=== PATIENT | male | born 1945 | race Caucasian/White ===

== ENCOUNTER 2016-07-19 08:07 | Inpatient (IN) ==
[2016-07-20 05:44] LABS: Basophils % 0.6 %; Eosinophils # 0.3 K/mcL (0.0-0.6); Eosinophils % 5.9 %; Hematocrit 38.9 % (37.5-50.1); Hemoglobin 13.3 g/dL (12.9-16.9); Immature Granulocytes % 0.2 % (0-4); Lymphocytes # 1.1 K/mcL (0.6-4.6); Lymphocytes % 24.2 %; Mean Corpuscular HGB Conc 34.2 g/dL (31.6-35.5); Mean Corpuscular Hemoglobin 32.2 pg (28.0-33.3); Mean Corpuscular Volume 94.2 fL (83.0-100.0); Mean Platelet Volume 9.6 fL (9.4-12.4); Monocytes # 0.5 K/mcL (0.0-1.3); Neutrophils # 2.8 K/mcL (1.6-8.9); Platelet Count 128 K/mcL (140-400); Red Blood Count 4.13 M/mcL (4.19-5.50); Red Cell Distribution Width 12.7 % (11.5-14.5); Segmented Neutrophils % 59.1 %
[2016-07-20 05:46] LABS: Prothrombin Time 11.3 Seconds (9.4-12.1)
[2016-07-20 05:49] LABS: Activated Partial Thrombo Time 28.8 Seconds (26.0-36.0)
[2016-07-20 05:58] LABS: BUN/Creatinine Ratio 12 (6-26); Blood Urea Nitrogen 14 mg/dL (8-26); Calcium 9.3 mg/dL (8.6-10.8); Carbon Dioxide 27 mEq/L (19-29); Chloride 101 mEq/L (98-109); Glucose 90 mg/dL (70-99); Osmolality,Calculated 278 (280-300); Potassium 4.8 mEq/L (3.5-4.5); Sodium 134 mEq/L (136-145); eGFR For African Americans > 60 (> 60); eGFR For Non-African Americans > 60 (> 60)
[2016-07-20] MEDS: Aspirin 81 MG TAB.CHEW PO SCH (07:59)
[2016-07-20] MEDS: Acetaminophen 325 MG TABLET PO PRN ×2 (08:00→20:03)
--- NOTE | 2016-07-20 11:25 | Internal Med History&Physical ---
Date of Encounter: 07/20/16 Time of Encounter: 11:23 Assessment and Plan (1) Cerebrovascular accident Current visit: Yes Status: Acute Patient be worked with PT OT T or and speech. Qualifiers: CVA mechanism: embolism Precerebral and cerebral artery: unspecified cerebral artery Qualified Code(s): I63.40 - Cerebral infarction due to embolism of unspecified cerebral artery Internal Medicine - H&P: HPI Chief complaint: Patient had a left CVA. Admitted From: Hospital to Hospital Transfer Plans for Post Hospital Care: Home History of present illness: Mr. Camargo is a 71 year old male Past Med Surg Social Fam HX - Past Medical History Medical history: aortic aneurysm, arthritis, COPD, CVA, hyperlipidemia, hypertension, syncope, other Psychiatric history: no psych history - Past Surgical History Surgical History: cataract, LE Bypass, other - Social History Smoking Status: Current every day smoker Smokeless Tobacco Status: No Alcohol use: none, recent Drug use: other - Family History Father Living Status: Still Living Hx Family Respiratory Disorders: Yes (COPD) Daughter Family Member Ethnicity: Non- Internal Medicine - H&P: Meds Acetaminophen [Tylenol] 650 mg PO Q6H PRN 04/20/16 [History] Atorvastatin Calcium [Lipitor] 80 mg PO HS 04/20/16 [History] Citalopram [CeleXA] 20 mg PO DAILY 04/20/16 [History] Lisinopril [Zestril] 10 mg PO DAILY 04/20/16 [History] Sennosides/Docusate Sodium [Senna-Docusate Sodium Tablet] 1 tab PO BID PRN 04/20 [History] Aspirin 81 mg PO DAILY 07/19/16 [History] Allergies No Known Allergies Allergy (Verified 04/09/16 23:54) All Systems PM: A 10-system review of systems was performed and is negative for pertinent findings except as documented above in the HPI. - Constitutional Vitals: Temp Pulse Resp BP Pulse Ox 98.3 F 67 15 118/74 98 07/20/16 07:10 07/20/16 07:10 07/20/16 07:10 07/20/16 07:10 07/20/16 07:10 - Head Head exam: Present: atraumatic, normal inspection, normocephalic - Neurological Exam Neurological exam: Present: alert ( An infarct revealed superior aspect of left cerebellar hemisphere without hemorrhage), CN II-XII intact, oriented X3, no focal deficits. Absent: pronater drift, facial droop, speech deficit - Expanded Neurological Exam Speech: Present: slurred Internal Med - H&P Results - Labs CBC & Chem 7: 07/20/16 05:20 07/20/16 05:20 Labs: Short CBC 07/20/16 Range/Units 05:20 WBC 4.7 (4.3-11.1) K/mcL Hgb 13.3 (12.9-16.9) g/dL Hct 38.9 (37.5-50.1) % Plt Count 128 L (140-400) K/mcL Neutrophils # 2.8 (1.6-8.9) K/mcL BMP 07/20/16 05:20 Sodium 134 L Potassium 4.8 H Chloride 101 Carbon Dioxide 27 BUN 14 Creatinine 1.13 Glucose 90 Calcium 9.3 Lab looks pretty good - VTE Documentation of Mechanical Device: Graduated compression elastic hosiery
[2016-07-20] MEDS: Sennosides/Docusate Sodium TABLET PO PRN (20:03)
--- NOTE | 2016-07-21 04:56 | Internal Med Progress Note ---
Date of Encounter: 07/21/16 Time of Encounter: 09:17 - Assessment and plan (1) Cerebrovascular accident Current Visit: Yes Status: Acute Assessment and plan: PT and OT to improve ADL. Pt with mild- moderate oropharyngeal dysphagia, mild dysarthria and mild cognitive communication deficits Speech Therapy Recommendations Begin speech language therapy to address impairments discussed above. Rehab Potential Good Qualifiers: CVA mechanism: embolism Precerebral and cerebral artery: unspecified cerebral artery Qualified Code(s): I63.40 - Cerebral infarction due to embolism of unspecified cerebral artery - Time Spent With Patient less than 15 minutes - Subjective Interval history: No new complaint today. No shortness of breath. No chest pain. No abdominal pain. - Constitutional Vitals: Temp Pulse Resp BP Pulse Ox 97.9 F 62 16 101/64 97 07/20/16 22:19 07/20/16 22:19 07/20/16 16:32 07/20/16 22:19 07/20/16 22:19 General appearance: Present: A&O X 3, pleasant, no acute distress - Respiratory Respiratory exam: Present: CTAB. Absent: accessory muscle use, rales, rhonchi, wheezes - Cardiovascular Cardiovascular exam: Present: RRR, +S1, +S2. Absent: diastolic murmur, gallop, rubs, systolic murmur - GI/Abdominal GI/Abdominal exam: Present: normal bowel sounds, soft, no peritoneal signs. Absent: distended, tenderness - Neurological Exam Neurological exam: Present: alert, normal gait, speech deficit - Skin Skin exam: Present: dry, intact Internal Medicine: Result - Labs CBC & Chem 7: 07/20/16 05:20 07/20/16 05:20 Labs: Short CBC 07/20/16 Range/Units 05:20 WBC 4.7 (4.3-11.1) K/mcL Hgb 13.3 (12.9-16.9) g/dL Hct 38.9 (37.5-50.1) % Plt Count 128 L (140-400) K/mcL Neutrophils # 2.8 (1.6-8.9) K/mcL BMP 07/20/16 05:20 Sodium 134 L Potassium 4.8 H Chloride 101 Carbon Dioxide 27 BUN 14 Creatinine 1.13 Glucose 90 Calcium 9.3 - ABG Interpretation ABG results: PT/INR, D-dimer PT 11.3 Seconds (9.4-12.1) 07/20/16 05:20 - VTE Documentation of Mechanical Device: Graduated compression elastic hosiery Consult Discharge Plan - Plan Referrals: NO,PCP [Primary Care Provider] -
[2016-07-21] MEDS: Aspirin 81 MG TAB.CHEW PO SCH (09:52)
[2016-07-21] MEDS: Sennosides/Docusate Sodium TABLET PO PRN (10:00)
[2016-07-21] MEDS: Acetaminophen 325 MG TABLET PO PRN (17:04)
[2016-07-22] MEDS: Sennosides/Docusate Sodium TABLET PO PRN (09:11)
[2016-07-22] MEDS: Aspirin 81 MG TAB.CHEW PO SCH (09:11)
[2016-07-22] MEDS: Acetaminophen 325 MG TABLET PO PRN (11:40)
--- NOTE | 2016-07-22 12:20 | Internal Med Progress Note ---
Date of Encounter: 07/22/16 Time of Encounter: 12:19 - Assessment and plan (1) Cerebrovascular accident Current Visit: Yes Status: Acute Assessment and plan: Patient is working with therapist including speech and we will follow his progress and reevaluate tomorrow Qualifiers: CVA mechanism: embolism Precerebral and cerebral artery: unspecified cerebral artery Qualified Code(s): I63.40 - Cerebral infarction due to embolism of unspecified cerebral artery - Time Spent With Patient less than 15 minutes - Subjective Interval history: Patient seems to be doing very well. He has begun his therapy he just finished eating and then arrested in his room with no obvious complaint - Constitutional Vitals: Temp Pulse Resp BP Pulse Ox 99.1 F 83 16 129/93 95 07/22/16 06:29 07/22/16 06:29 07/22/16 06:29 07/22/16 06:29 07/22/16 06:29 General appearance: Present: A&O X 3, pleasant, no acute distress - Head Head exam: Present: atraumatic, normal inspection, normocephalic - Neck Neck exam general surgery: Present: supple, trachea midline. Absent: lymphadenopathy - Respiratory Respiratory exam: Present: CTAB. Absent: accessory muscle use, rales, rhonchi, wheezes - Cardiovascular Cardiovascular exam: Present: RRR, +S1, +S2. Absent: diastolic murmur, gallop, rubs, systolic murmur Internal Medicine: Result - Labs CBC & Chem 7: 07/20/16 05:20 07/20/16 05:20 Labs: Abdomen appears to be stable - ABG Interpretation ABG results: PT/INR, D-dimer PT 11.3 Seconds (9.4-12.1) 07/20/16 05:20 - VTE Documentation of Mechanical Device: Graduated compression elastic hosiery Consult Discharge Plan - Plan Referrals: NO,PCP [Primary Care Provider] -
[2016-07-23 05:40] LABS: Basophils % 0.4 %; Eosinophils # 0.3 K/mcL (0.0-0.6); Eosinophils % 5.2 %; Hematocrit 41.7 % (37.5-50.1); Hemoglobin 14.3 g/dL (12.9-16.9); Immature Granulocytes % 0.4 % (0-4); Lymphocytes # 1.3 K/mcL (0.6-4.6); Lymphocytes % 25.3 %; Mean Corpuscular HGB Conc 34.3 g/dL (31.6-35.5); Mean Corpuscular Hemoglobin 32.1 pg (28.0-33.3); Mean Corpuscular Volume 93.7 fL (83.0-100.0); Mean Platelet Volume 10.1 fL (9.4-12.4); Monocytes # 0.5 K/mcL (0.0-1.3); Monocytes % 9.4 %; Neutrophils # 3.1 K/mcL (1.6-8.9); Platelet Count 136 K/mcL (140-400); Red Blood Count 4.45 M/mcL (4.19-5.50); Red Cell Distribution Width 12.4 % (11.5-14.5); Segmented Neutrophils % 59.3 %
[2016-07-23 05:54] LABS: BUN/Creatinine Ratio 15 (6-26); Blood Urea Nitrogen 18 mg/dL (8-26); Calcium 9.3 mg/dL (8.6-10.8); Carbon Dioxide 24 mEq/L (19-29); Chloride 100 mEq/L (98-109); Glucose 89 mg/dL (70-99); Osmolality,Calculated 273 (280-300); Potassium 4.8 mEq/L (3.5-4.5); Sodium 131 mEq/L (136-145); eGFR For African Americans > 60 (> 60); eGFR For Non-African Americans 60 (> 60)
[2016-07-23] MEDS: Acetaminophen 325 MG TABLET PO PRN ×2 (09:36→20:10)
[2016-07-23] MEDS: Aspirin 81 MG TAB.CHEW PO SCH (09:36)
[2016-07-23] MEDS: Sennosides/Docusate Sodium TABLET PO PRN (20:10)
--- NOTE | 2016-07-24 00:21 | Internal Med Progress Note ---
Date of Encounter: 07/24/16 Time of Encounter: 07:56 - Assessment and plan (1) Cerebrovascular accident Current Visit: Yes Status: Inactive Assessment and plan: Dysarthria improving. Left-sided weakness still noted. Still has some balance uncoordination Patient is working with therapist including speech and we will follow his progress and reevaluate tomorrow Qualifiers: CVA mechanism: embolism Precerebral and cerebral artery: unspecified cerebral artery Qualified Code(s): I63.40 - Cerebral infarction due to embolism of unspecified cerebral artery - Time Spent With Patient less than 15 minutes - Subjective Interval history: No new complaint today. No shortness of breath. No chest pain. No abdominal pain. - Constitutional Vitals: Temp Pulse Resp BP Pulse Ox 97.2 F L 82 16 102/62 95 07/23/16 19:14 07/23/16 19:14 07/23/16 19:14 07/23/16 19:14 07/23/16 19:14 General appearance: Present: A&O X 3, pleasant, no acute distress - Respiratory Respiratory exam: Present: CTAB. Absent: accessory muscle use, rales, rhonchi, wheezes - Cardiovascular Cardiovascular exam: Present: RRR, +S1, +S2. Absent: diastolic murmur, gallop, rubs, systolic murmur - GI/Abdominal GI/Abdominal exam: Present: normal bowel sounds, soft, no peritoneal signs. Absent: distended, tenderness - Extremities Exam Extremities exam: Present: warm, radial pulses palpable and symetrical. Absent : calf tenderness, cyanotic, pedal edema - Neurological Exam Neurological exam: Present: alert, oriented X3, speech deficit Internal Medicine: Result - Labs CBC & Chem 7: 07/23/16 05:10 07/23/16 05:10 Labs: Short CBC 07/23/16 Range/Units 05:10 WBC 5.2 (4.3-11.1) K/mcL Hgb 14.3 (12.9-16.9) g/dL Hct 41.7 (37.5-50.1) % Plt Count 136 L (140-400) K/mcL Neutrophils # 3.1 (1.6-8.9) K/mcL BMP 07/23/16 05:10 Sodium 131 L Potassium 4.8 H Chloride 100 Carbon Dioxide 24 BUN 18 Creatinine 1.20 Glucose 89 Calcium 9.3 - ABG Interpretation ABG results: PT/INR, D-dimer PT 11.3 Seconds (9.4-12.1) 07/20/16 05:20 - VTE Documentation of Mechanical Device: Graduated compression elastic hosiery Consult Discharge Plan - Plan Referrals: NO,PCP [Primary Care Provider] -
[2016-07-24] MEDS: Aspirin 81 MG TAB.CHEW PO SCH (08:11)
[2016-07-24] MEDS: Acetaminophen 325 MG TABLET PO PRN ×2 (10:18→20:09)
[2016-07-25] MEDS: Aspirin 81 MG TAB.CHEW PO SCH (08:28)
--- NOTE | 2016-07-25 13:17 | Internal Med Progress Note ---
Date of Encounter: 07/25/16 Time of Encounter: 13:14 - Assessment and plan (1) Dehydration Current Visit: No Status: Acute Assessment and plan: This is resolved. (2) Facial bones, closed fracture Current Visit: No Status: Acute Assessment and plan: No sequela before Qualifiers: Encounter type: subsequent encounter Mandible location: other site Fracture healing: with routine healing Qualified Code(s): S02.69XD - Fracture of mandible of other specified site, subsequent encounter for fracture with routine healing (3) Near syncope Current Visit: No Status: Acute Assessment and plan: Currently not suffering near syncope (4) TIA (transient ischemic attack) Current Visit: No Status: Acute Assessment and plan: The patient had a TIA but ecchymosis resolved. Lips E PT OT and TR notes. Along with speech. I have some concerns about his independence. He definitely needs standby and using wheelchair .he will go With his brother who he will go home with and he will have "meals and assistance. Home he stays there is a problem Qualifiers: Transient cerebral ischemia type: unspecified Qualified Code(s): G45.9 - Transient cerebral ischemic attack, unspecified - Time Spent With Patient less than 15 minutes - Subjective Interval history: Patient seems to be doing very well. He has begun his therapy he just finished eating and then rested in his room with no obvious complaint - Constitutional Vitals: Temp Pulse Resp BP Pulse Ox 98.1 F 96 16 106/52 98 07/25/16 07:00 07/25/16 07:00 07/25/16 07:00 07/25/16 07:00 07/25/16 07:00 General appearance: Present: A&O X 3, pleasant, no acute distress - Head Head exam: Present: atraumatic, normal inspection, normocephalic - Neck Neck exam general surgery: Present: supple, trachea midline. Absent: lymphadenopathy - Respiratory Respiratory exam: Present: CTAB. Absent: accessory muscle use, rales, rhonchi, wheezes - Cardiovascular Cardiovascular exam: Present: RRR, +S1, +S2. Absent: diastolic murmur, gallop, rubs, systolic murmur Internal Medicine: Result - Labs CBC & Chem 7: 07/23/16 05:10 07/23/16 05:10 Labs: Labs basically okay - ABG Interpretation ABG results: PT/INR, D-dimer PT 11.3 Seconds (9.4-12.1) 07/20/16 05:20 - VTE Documentation of Mechanical Device: Graduated compression elastic hosiery Consult Discharge Plan - Plan Referrals: NO,PCP [Primary Care Provider] -
--- NOTE | 2016-07-25 14:50 | Psychological Evaluation ---
Date of Encounter: 07/25/16 Time of Encounter: 11:00 History of Present Illness History of present illness: Mr. Camargo is a 71 year old male admitted to [facility] following a recent CVA (pre- cerebral and cerebral artery). He was seen on this date to assess his current emotional and cognitive functioning. Past Medical History Medical history: Mr. Camargo's medical history is significant for aortic aneurysm, arthritis, syncope, HTN, COPD, hyperlipidemia and a previous CVA. - Psychiatric History Additional Psychiatric History: There is no history of psychiatric hospitalization or mental health counseling. He reported that he has been prescribed an antidepressant medication. There is no family history of psychiatric or mental health issues. Home Medications and Allergies Acetaminophen [Tylenol] 650 mg PO Q6H PRN 04/20/16 [History] Atorvastatin Calcium [Lipitor] 80 mg PO HS 04/20/16 [History] Citalopram [CeleXA] 20 mg PO DAILY 04/20/16 [History] Lisinopril [Zestril] 10 mg PO DAILY 04/20/16 [History] Sennosides/Docusate Sodium [Senna-Docusate Sodium Tablet] 1 tab PO BID PRN 04/20 [History] Aspirin 81 mg PO DAILY 07/19/16 [History] Allergies No Known Allergies Allergy (Verified 04/09/16 23:54) Social History - Social History Social History: Ms. Camargo lives alone but was discharged to the care of his older brother and his brother's after his last CVA. Mr. Camargo apparently felt well enough to return to independent living. He stated that he spent his days watching TV and went to the local [employer] daily to eat lunch and have a "couple of beers". Mr. Camargo is and has two daughters (one lives in [place] and the other lives in the [facility]). HIs social support system consists of his daughter in [place] and his brother. - Tobacco Use Smoking Status: Current every day smoker - Alcohol Use Alcohol Use: occasionally (drinks "a couple of beers" daily at the [employer]) - Drug Use Drug Use: none Cognitive/Emotional Assessment - Cognitive Ability Additional Findings: Mr. Camargo was alert, attentive and fully oriented. Speech was fluent but was difficult to understand at times because he tended to mumble and speak fast. Auditory comprehension appeared adequate. He was able to do rote but not simple mental arithmetic. On a task of delayed verbal recall, he was unable to recall any of the words following a brief delay despite cueing/multiple choice recognition. He had predicted that he would do well on the memory task and was surprised by his performance. He stated that one of his daughters handles his finances and personal affairs. - Emotional Status Additional Findings: Mr. Camargo was pleasant, cooperative and friendly. Speech was fluent. Thought processes were coherent, goal-directed and logical. There were no signs of delusional ideation or perceptual disturbances. He described his mood as "good " and stated that he does not worry and tries to go with the flow. His rehab goal is to improve his walking/ambulation and improve the use of his left hand. Assessment & Plan - Diagnosis (1) Other specified mental disorders due to known physiological condition (2) CVA (cerebrovascular accident due to intracerebral hemorrhage) Qualifiers: Intracerebral hemorrhage etiology: nontraumatic Cerebral hemorrhage location: unspecified cerebral location Laterality: unspecified laterality Qualified Code(s): I61.9 - Nontraumatic intracerebral hemorrhage, unspecified - Treatment Plan Treatment Plan/Recommendations: Mr. Camargo is exhibiting significant impairment in his delayed verbal recall. He appears to be coping fairly well from an emotional perspective and did not voice any complaints or concerns regarding his CVA recovery. He will benefit from supervision in his daily routine to ensure that he takes his medications as prescribed and should be encouraged to abstain from smoking and drinking beer given his chronic medical conditions. Procedures - Session Time Session Start Time: 11:00 Session Stop Time: 11:30
[2016-07-25] MEDS: Acetaminophen 325 MG TABLET PO PRN (20:59)
[2016-07-25] MEDS: Sennosides/Docusate Sodium TABLET PO PRN (20:59)
[2016-07-26] MEDS: Acetaminophen 325 MG TABLET PO PRN ×2 (09:41→20:58)
[2016-07-26] MEDS: Aspirin 81 MG TAB.CHEW PO SCH (09:41)
--- NOTE | 2016-07-26 13:22 | Internal Med Progress Note ---
Date of Encounter: 07/26/16 Time of Encounter: 13:20 - Assessment and plan (1) Dehydration Current Visit: No Status: Acute Assessment and plan: This appears to be resolved (2) Facial bones, closed fracture Current Visit: No Status: Acute Assessment and plan: Not currently causing any acute clinical problem Qualifiers: Encounter type: subsequent encounter Mandible location: other site Fracture healing: with routine healing Qualified Code(s): S02.69XD - Fracture of mandible of other specified site, subsequent encounter for fracture with routine healing (3) Near syncope Current Visit: No Status: Acute Assessment and plan: No evidence of near syncope (4) TIA (transient ischemic attack) Current Visit: No Status: Acute Assessment and plan: No repeated TIAs Qualifiers: Transient cerebral ischemia type: unspecified Qualified Code(s): G45.9 - Transient cerebral ischemic attack, unspecified - Time Spent With Patient less than 15 minutes - Subjective Interval history: Patient is cooperating with the therapist. One of his biggest problems other than balance and independent ambulation is the fact that he still has some slurred speech - Constitutional Vitals: Temp Pulse Resp BP Pulse Ox 98.0 F 63 16 109/77 96 07/26/16 07:00 07/26/16 07:00 07/26/16 07:00 07/26/16 07:00 07/26/16 07:00 General appearance: Present: A&O X 3, pleasant, no acute distress - Head Head exam: Present: atraumatic, normal inspection, normocephalic - Neck Neck exam general surgery: Present: supple, trachea midline. Absent: lymphadenopathy - Respiratory Respiratory exam: Present: CTAB. Absent: accessory muscle use, rales, rhonchi, wheezes - Cardiovascular Cardiovascular exam: Present: RRR, +S1, +S2. Absent: diastolic murmur, gallop, rubs, systolic murmur - GI/Abdominal GI/Abdominal exam: Present: normal bowel sounds, soft, no peritoneal signs. Absent: distended, tenderness Internal Medicine: Result - Labs CBC & Chem 7: 07/23/16 05:10 07/23/16 05:10 Labs: Lab is stable - ABG Interpretation ABG results: PT/INR, D-dimer PT 11.3 Seconds (9.4-12.1) 07/20/16 05:20 - VTE Documentation of Mechanical Device: Graduated compression elastic hosiery Consult Discharge Plan - Plan Referrals: NO,PCP [Primary Care Provider] -
[2016-07-26] MEDS: Sennosides/Docusate Sodium TABLET PO PRN (20:57)
[2016-07-27] MEDS: Acetaminophen 325 MG TABLET PO PRN ×2 (09:03→18:19)
[2016-07-27] MEDS: Aspirin 81 MG TAB.CHEW PO SCH (09:03)
--- NOTE | 2016-07-27 11:59 | Internal Med Progress Note ---
Date of Encounter: 07/27/16 Time of Encounter: 11:57 - Assessment and plan (1) Dehydration Current Visit: No Status: Acute (2) Facial bones, closed fracture Current Visit: No Status: Acute Qualifiers: Encounter type: subsequent encounter Mandible location: other site Fracture healing: with routine healing Qualified Code(s): S02.69XD - Fracture of mandible of other specified site, subsequent encounter for fracture with routine healing (3) Near syncope Current Visit: No Status: Acute (4) TIA (transient ischemic attack) Current Visit: No Status: Acute Qualifiers: Transient cerebral ischemia type: unspecified Qualified Code(s): G45.9 - Transient cerebral ischemic attack, unspecified - Subjective Interval history: Patient is cooperating with the therapist. One of his biggest problems other than balance and independent ambulation and .the fact that he still has some slurred speech - Constitutional Vitals: Temp Pulse Resp BP Pulse Ox 98.5 F 69 16 119/67 98 07/27/16 07:00 07/27/16 07:00 07/27/16 07:00 07/27/16 07:00 07/27/16 07:00 General appearance: Present: A&O X 3, pleasant, no acute distress - Head Head exam: Present: atraumatic, normal inspection, normocephalic - Neck Neck exam general surgery: Present: supple, trachea midline. Absent: lymphadenopathy - Respiratory Respiratory exam: Present: CTAB. Absent: accessory muscle use, rales, rhonchi, wheezes - Cardiovascular Cardiovascular exam: Present: RRR, +S1, +S2. Absent: diastolic murmur, gallop, rubs, systolic murmur - GI/Abdominal GI/Abdominal exam: Present: normal bowel sounds, soft, no peritoneal signs. Absent: distended, tenderness - Neurological Exam Neurological exam: Present: CN II-XII intact, oriented X3, no focal deficits. Absent: pronater drift, facial droop, speech deficit (Patient still has slurred speech) Internal Medicine: Result - Labs CBC & Chem 7: 07/23/16 05:10 07/23/16 05:10 - ABG Interpretation ABG results: PT/INR, D-dimer PT 11.3 Seconds (9.4-12.1) 07/20/16 05:20 - VTE Documentation of Mechanical Device: Graduated compression elastic hosiery Consult Discharge Plan - Plan Referrals: NO,PCP [Primary Care Provider] -
--- NOTE | 2016-07-27 14:05 | Internal Med Progress Note ---
Date of Encounter: 07/27/16 Time of Encounter: 14:03 - Assessment and plan (1) Facial bones, closed fracture Current Visit: No Status: Resolved Assessment and plan: All of this I think right now is stable Qualifiers: Encounter type: subsequent encounter Mandible location: other site Fracture healing: with routine healing Qualified Code(s): S02.69XD - Fracture of mandible of other specified site, subsequent encounter for fracture with routine healing (2) Near syncope Current Visit: No Status: Acute Assessment and plan: No evidence of near syncope (3) TIA (transient ischemic attack) Current Visit: No Status: Acute Assessment and plan: No evidence of any repeat TIA Qualifiers: Transient cerebral ischemia type: unspecified Qualified Code(s): G45.9 - Transient cerebral ischemic attack, unspecified - Time Spent With Patient less than 15 minutes - Subjective Interval history: Patient is cooperating with the therapist. One of his biggest problems other than balance and independent ambulation and .the fact that he still has some slurred speech - Constitutional Vitals: Temp Pulse Resp BP Pulse Ox 98.5 F 69 16 119/67 98 07/27/16 07:00 07/27/16 07:00 07/27/16 07:00 07/27/16 07:00 07/27/16 07:00 General appearance: Present: A&O X 3, pleasant, no acute distress - Head Head exam: Present: atraumatic, normal inspection, normocephalic - Neck Neck exam general surgery: Present: supple, trachea midline. Absent: lymphadenopathy - Respiratory Respiratory exam: Present: CTAB. Absent: accessory muscle use, rales, rhonchi, wheezes - Cardiovascular Cardiovascular exam: Present: RRR, +S1, +S2. Absent: diastolic murmur, gallop, rubs, systolic murmur - GI/Abdominal GI/Abdominal exam: Present: normal bowel sounds, soft, no peritoneal signs. Absent: distended, tenderness Internal Medicine: Result - Labs CBC & Chem 7: 07/23/16 05:10 07/23/16 05:10 Labs: Lab is okay - ABG Interpretation ABG results: PT/INR, D-dimer PT 11.3 Seconds (9.4-12.1) 07/20/16 05:20 - VTE Documentation of Mechanical Device: Graduated compression elastic hosiery Consult Discharge Plan - Plan Referrals: NO,PCP [Primary Care Provider] -
[2016-07-27] MEDS: Sennosides/Docusate Sodium TABLET PO PRN (21:29)
[2016-07-28] MEDS: Aspirin 81 MG TAB.CHEW PO SCH (08:52)
--- NOTE | 2016-07-28 10:34 | Internal Med Progress Note ---
Date of Encounter: 07/28/16 Time of Encounter: 10:32 - Assessment and plan (1) Cerebrovascular accident Current Visit: Yes Status: Inactive Assessment and plan: Dysarthria improving. Left-sided weakness still noted. Still has some balance uncoordination Patient is working with therapist including speech and we will follow his progress and reevaluate tomorrow Qualifiers: CVA mechanism: embolism Precerebral and cerebral artery: unspecified cerebral artery Qualified Code(s): I63.40 - Cerebral infarction due to embolism of unspecified cerebral artery - Time Spent With Patient less than 15 minutes - Subjective Interval history: No new complaint today. No shortness of breath. No chest pain. No abdominal pain. Patient reports that he is feeling stronger. He still admits to having some balance issues. - Constitutional Vitals: Temp Pulse Resp BP Pulse Ox 97.9 F 61 14 115/70 96 07/28/16 07:00 07/28/16 07:00 07/27/16 19:00 07/28/16 07:00 07/28/16 07:00 General appearance: Present: A&O X 3, pleasant, no acute distress - Respiratory Respiratory exam: Present: CTAB. Absent: accessory muscle use, rales, rhonchi, wheezes - Cardiovascular Cardiovascular exam: Present: RRR, +S1, +S2. Absent: diastolic murmur, gallop, rubs, systolic murmur - GI/Abdominal GI/Abdominal exam: Present: normal bowel sounds, soft, no peritoneal signs. Absent: distended, tenderness - Extremities Exam Extremities exam: Present: warm, radial pulses palpable and symetrical. Absent : calf tenderness, cyanotic, pedal edema - Expanded Neurological Exam Speech: Present: expressive aphasia - Skin Skin exam: Present: dry, intact Internal Medicine: Result - Labs CBC & Chem 7: 07/23/16 05:10 07/23/16 05:10 - ABG Interpretation ABG results: PT/INR, D-dimer PT 11.3 Seconds (9.4-12.1) 07/20/16 05:20 - VTE Documentation of Mechanical Device: Graduated compression elastic hosiery Consult Discharge Plan - Plan Referrals: NO,PCP [Primary Care Provider] -
[2016-07-28] MEDS: Sennosides/Docusate Sodium TABLET PO PRN (21:17)
[2016-07-28] MEDS: Acetaminophen 325 MG TABLET PO PRN (21:18)
[2016-07-29] MEDS: Aspirin 81 MG TAB.CHEW PO SCH (08:58)
--- NOTE | 2016-07-29 11:04 | Internal Med Progress Note ---
Date of Encounter: 07/29/16 Time of Encounter: 11:03 - Assessment and plan (1) Cerebrovascular accident Current Visit: Yes Status: Inactive Assessment and plan: Diet advanced today. Dysarthria improving. Left-sided weakness still noted. Still has some balance uncoordination Patient is working with therapist including speech and we will follow his progress and reevaluate tomorrow Qualifiers: CVA mechanism: embolism Precerebral and cerebral artery: unspecified cerebral artery Qualified Code(s): I63.40 - Cerebral infarction due to embolism of unspecified cerebral artery - Time Spent With Patient less than 15 minutes - Subjective Interval history: Happy that his diet was advanced today. Able to eat pizza. No new complaint today. No shortness of breath. No chest pain. No abdominal pain. Patient reports that he is feeling stronger. He still admits to having some balance issues. - Constitutional Vitals: Temp Pulse Resp BP Pulse Ox 99.2 F 72 18 128/65 99 07/29/16 07:02 07/29/16 07:02 07/29/16 07:02 07/29/16 07:02 07/29/16 07:02 General appearance: Present: A&O X 3, pleasant, no acute distress - Respiratory Respiratory exam: Present: CTAB. Absent: accessory muscle use, rales, rhonchi, wheezes - Cardiovascular Cardiovascular exam: Present: RRR, +S1, +S2. Absent: diastolic murmur, gallop, rubs, systolic murmur Internal Medicine: Result - Labs CBC & Chem 7: 07/23/16 05:10 07/23/16 05:10 - ABG Interpretation ABG results: PT/INR, D-dimer PT 11.3 Seconds (9.4-12.1) 07/20/16 05:20 - VTE Documentation of Mechanical Device: Graduated compression elastic hosiery Consult Discharge Plan - Plan Referrals: NO,PCP [Primary Care Provider] -
[2016-07-29] MEDS: Acetaminophen 325 MG TABLET PO PRN (22:05)
[2016-07-29] MEDS: Sennosides/Docusate Sodium TABLET PO PRN (22:05)
[2016-07-30 05:23] LABS: Basophils % 0.5 %; Eosinophils # 0.3 K/mcL (0.0-0.6); Eosinophils % 4.1 %; Hematocrit 36.4 % (37.5-50.1); Hemoglobin 12.4 g/dL (12.9-16.9); Immature Granulocytes % 0.2 % (0-4); Lymphocytes # 1.8 K/mcL (0.6-4.6); Lymphocytes % 29.2 %; Mean Corpuscular HGB Conc 34.1 g/dL (31.6-35.5); Mean Corpuscular Hemoglobin 32.3 pg (28.0-33.3); Mean Corpuscular Volume 94.8 fL (83.0-100.0); Mean Platelet Volume 10.5 fL (9.4-12.4); Monocytes # 0.5 K/mcL (0.0-1.3); Monocytes % 7.9 %; Neutrophils # 3.5 K/mcL (1.6-8.9); Platelet Count 131 K/mcL (140-400); Red Blood Count 3.84 M/mcL (4.19-5.50); Red Cell Distribution Width 12.3 % (11.5-14.5); Segmented Neutrophils % 58.1 %
[2016-07-30 05:42] LABS: BUN/Creatinine Ratio 19 (6-26); Blood Urea Nitrogen 20 mg/dL (8-26); Calcium 9.1 mg/dL (8.6-10.8); Carbon Dioxide 25 mEq/L (19-29); Chloride 104 mEq/L (98-109); Glucose 90 mg/dL (70-99); Osmolality,Calculated 286 (280-300); Potassium 4.4 mEq/L (3.5-4.5); Sodium 137 mEq/L (136-145); eGFR For African Americans > 60 (> 60); eGFR For Non-African Americans > 60 (> 60)
[2016-07-30] MEDS: Acetaminophen 325 MG TABLET PO PRN ×2 (06:57→19:50)
[2016-07-30] MEDS: Aspirin 81 MG TAB.CHEW PO SCH (09:50)
--- NOTE | 2016-07-30 13:39 | Internal Med Progress Note ---
Date of Encounter: 07/30/16 Time of Encounter: 13:37 - Assessment and plan (1) Facial bones, closed fracture Current Visit: No Status: Acute Assessment and plan: Not currently a clinical problem Qualifiers: Encounter type: subsequent encounter Mandible location: other site Fracture healing: with routine healing Qualified Code(s): S02.69XD - Fracture of mandible of other specified site, subsequent encounter for fracture with routine healing (2) Near syncope Current Visit: No Status: Acute Assessment and plan: No episodes of near syncope that I am aware of. (3) TIA (transient ischemic attack) Current Visit: No Status: Acute Assessment and plan: I question probably a CVA. Qualifiers: Transient cerebral ischemia type: unspecified Qualified Code(s): G45.9 - Transient cerebral ischemic attack, unspecified - Time Spent With Patient less than 15 minutes - Subjective Interval history: Mr. Camargo still pleasant and cooperative. But he gets ataxic at times and weak kneed in almost collapses. So he needs to increase his strength and endurance. - Constitutional Vitals: Temp Pulse Resp BP Pulse Ox 98.5 F 76 16 115/67 99 07/30/16 08:50 07/30/16 08:50 07/30/16 08:50 07/30/16 08:50 07/30/16 08:50 General appearance: Present: A&O X 3, pleasant, no acute distress - Head Head exam: Present: atraumatic, normal inspection, normocephalic - Neck Neck exam general surgery: Present: supple, trachea midline. Absent: lymphadenopathy - Respiratory Respiratory exam: Present: CTAB. Absent: accessory muscle use, rales, rhonchi, wheezes - Cardiovascular Cardiovascular exam: Present: RRR, +S1, +S2. Absent: diastolic murmur, gallop, rubs, systolic murmur Internal Medicine: Result - Labs CBC & Chem 7: 07/30/16 04:40 07/30/16 04:40 Labs: Short CBC 07/30/16 Range/Units 04:40 WBC 6.1 (4.3-11.1) K/mcL Hgb 12.4 L D (12.9-16.9) g/dL Hct 36.4 L (37.5-50.1) % Plt Count 131 L (140-400) K/mcL Neutrophils # 3.5 (1.6-8.9) K/mcL BMP 07/30/16 04:40 Sodium 137 Potassium 4.4 Chloride 104 Carbon Dioxide 25 BUN 20 Creatinine 1.06 Glucose 90 Calcium 9.1 Lab looks okay - ABG Interpretation ABG results: PT/INR, D-dimer PT 11.3 Seconds (9.4-12.1) 07/20/16 05:20 - VTE Documentation of Mechanical Device: Graduated compression elastic hosiery Consult Discharge Plan - Plan Referrals: NO,PCP [Primary Care Provider] -
[2016-07-30] MEDS: Sennosides/Docusate Sodium TABLET PO PRN (19:49)
[2016-07-31] MEDS: Aspirin 81 MG TAB.CHEW PO SCH (08:19)
--- NOTE | 2016-07-31 13:39 | Internal Med Progress Note ---
Date of Encounter: 07/31/16 Time of Encounter: 13:37 - Assessment and plan (1) Facial bones, closed fracture Current Visit: No Status: Acute Assessment and plan: No current problems Qualifiers: Encounter type: subsequent encounter Mandible location: other site Fracture healing: with routine healing Qualified Code(s): S02.69XD - Fracture of mandible of other specified site, subsequent encounter for fracture with routine healing (2) Near syncope Current Visit: No Status: Acute Assessment and plan: No evidence of near syncope (3) TIA (transient ischemic attack) Current Visit: No Status: Acute Assessment and plan: No evidence GI Qualifiers: Transient cerebral ischemia type: unspecified Qualified Code(s): G45.9 - Transient cerebral ischemic attack, unspecified - Time Spent With Patient less than 15 minutes - Subjective Interval history: Mr. Camargo still pleasant and cooperative. But he gets ataxic at times and weak kneed in almost collapses. So he needs to increase his strength and endurance. - Constitutional Vitals: Temp Pulse Resp BP Pulse Ox 98.9 F 83 16 120/73 96 07/31/16 07:00 07/31/16 07:00 07/31/16 07:00 07/31/16 07:00 07/31/16 07:00 General appearance: Present: A&O X 3, pleasant, no acute distress - Head Head exam: Present: atraumatic, normal inspection, normocephalic - Neck Neck exam general surgery: Present: supple, trachea midline. Absent: lymphadenopathy - Respiratory Respiratory exam: Present: CTAB. Absent: accessory muscle use, rales, rhonchi, wheezes - Cardiovascular Cardiovascular exam: Present: RRR, +S1, +S2. Absent: diastolic murmur, gallop, rubs, systolic murmur - GI/Abdominal GI/Abdominal exam: Present: normal bowel sounds, soft, no peritoneal signs. Absent: distended, tenderness Internal Medicine: Result - Labs CBC & Chem 7: 07/30/16 04:40 07/30/16 04:40 Labs: The [employer] counselor elevated will recheck - ABG Interpretation ABG results: PT/INR, D-dimer PT 11.3 Seconds (9.4-12.1) 07/20/16 05:20 - VTE Documentation of Mechanical Device: Graduated compression elastic hosiery Consult Discharge Plan - Plan Referrals: NO,PCP [Primary Care Provider] -
[2016-07-31] MEDS: Acetaminophen 325 MG TABLET PO PRN (18:39)
[2016-08-01 05:39] LABS: Basophils % 0.5 %; Eosinophils # 0.2 K/mcL (0.0-0.6); Eosinophils % 4.2 %; Hematocrit 35.9 % (37.5-50.1); Hemoglobin 12.5 g/dL (12.9-16.9); Immature Granulocytes % 0.4 % (0-4); Lymphocytes # 1.5 K/mcL (0.6-4.6); Lymphocytes % 26.1 %; Mean Corpuscular HGB Conc 34.8 g/dL (31.6-35.5); Mean Corpuscular Hemoglobin 33.1 pg (28.0-33.3); Mean Platelet Volume 10.1 fL (9.4-12.4); Monocytes # 0.4 K/mcL (0.0-1.3); Monocytes % 7.5 %; Neutrophils # 3.5 K/mcL (1.6-8.9); Platelet Count 133 K/mcL (140-400); Red Blood Count 3.78 M/mcL (4.19-5.50); Red Cell Distribution Width 12.2 % (11.5-14.5); Segmented Neutrophils % 61.3 %
[2016-08-01] MEDS: Aspirin 81 MG TAB.CHEW PO SCH (08:56)
[2016-08-01] MEDS: Acetaminophen 325 MG TABLET PO PRN (08:56)
--- NOTE | 2016-08-01 13:50 | Internal Med Progress Note ---
Date of Encounter: 08/01/16 Time of Encounter: 13:48 - Assessment and plan (1) Facial bones, closed fracture Current Visit: No Status: Acute Assessment and plan: Not a problem Qualifiers: Encounter type: subsequent encounter Mandible location: other site Fracture healing: with routine healing Qualified Code(s): S02.69XD - Fracture of mandible of other specified site, subsequent encounter for fracture with routine healing (2) Near syncope Current Visit: No Status: Acute (3) TIA (transient ischemic attack) Current Visit: No Status: Acute Assessment and plan: Doubt TIA as a septicemia Qualifiers: Transient cerebral ischemia type: unspecified Qualified Code(s): G45.9 - Transient cerebral ischemic attack, unspecified - Time Spent With Patient less than 15 minutes - Subjective Interval history: Mr. Camargo still pleasant and cooperative. But he gets ataxic at times and weak kneed in almost collapses. So he needs to increase his strength and endurance. Add to this he gets dizzy at times and simply gets locked up and cannot ambulate. If it had been for 2 assistance to hold him up to a wheelchair was obtained he would a collapsed on the floor today - Constitutional Vitals: Temp Pulse Resp BP Pulse Ox 97.3 F L 110 18 92/61 97 08/01/16 07:00 08/01/16 07:57 08/01/16 07:57 08/01/16 07:57 08/01/16 07:57 General appearance: Present: A&O X 3, pleasant, no acute distress - Head Head exam: Present: atraumatic, normocephalic - Neck Neck exam general surgery: Present: supple, trachea midline. Absent: lymphadenopathy - Respiratory Respiratory exam: Present: CTAB. Absent: accessory muscle use, rales, rhonchi, wheezes - Cardiovascular Cardiovascular exam: Present: RRR, +S1, +S2. Absent: diastolic murmur, gallop, rubs, systolic murmur Internal Medicine: Result - Labs CBC & Chem 7: 08/01/16 05:25 07/30/16 04:40 Labs: Short CBC 08/01/16 Range/Units 05:25 WBC 5.7 (4.3-11.1) K/mcL Hgb 12.5 L (12.9-16.9) g/dL Hct 35.9 L (37.5-50.1) % Plt Count 133 L (140-400) K/mcL Neutrophils # 3.5 (1.6-8.9) K/mcL Lab looks good - ABG Interpretation ABG results: PT/INR, D-dimer PT 11.3 Seconds (9.4-12.1) 07/20/16 05:20 - VTE Documentation of Mechanical Device: Graduated compression elastic hosiery Consult Discharge Plan - Plan Referrals: NO,PCP [Primary Care Provider] -
[2016-08-01] MEDS: Ciprofloxacin/Dex *EAR* Susp 7.5 ML BOTTLE RIGHT EAR SCH ×2 (18:34→20:32)
[2016-08-02] MEDS: Ciprofloxacin/Dex *EAR* Susp 7.5 ML BOTTLE RIGHT EAR SCH ×5 (08:31→21:36)
[2016-08-02] MEDS: Aspirin 81 MG TAB.CHEW PO SCH (08:31)
--- NOTE | 2016-08-02 15:21 | Internal Med Progress Note ---
Date of Encounter: 08/02/16 Time of Encounter: 15:19 - Assessment and plan (1) Facial bones, closed fracture Current Visit: No Status: Acute Assessment and plan: Problem Qualifiers: Encounter type: subsequent encounter Mandible location: other site Fracture healing: with routine healing Qualified Code(s): S02.69XD - Fracture of mandible of other specified site, subsequent encounter for fracture with routine healing (2) Near syncope Current Visit: No Status: Acute Assessment and plan: Near syncope has not reverted to A. fib since he has been here (3) TIA (transient ischemic attack) Current Visit: No Status: Acute Assessment and plan: No evidence of TIA patient did have CVA L Qualifiers: Transient cerebral ischemia type: unspecified Qualified Code(s): G45.9 - Transient cerebral ischemic attack, unspecified - Time Spent With Patient less than 15 minutes - Subjective Interval history: Patient still needs standby and ambulating. Speech is still slurred. When he continues to improve his attitude is good - Constitutional Vitals: Temp Pulse Resp BP Pulse Ox 98.1 F 71 18 111/79 97 08/02/16 07:00 08/02/16 07:00 08/02/16 07:00 08/02/16 07:00 08/02/16 07:00 General appearance: Present: A&O X 3, pleasant, no acute distress - Head Head exam: Present: atraumatic, normocephalic - Neck Neck exam general surgery: Present: supple, trachea midline. Absent: lymphadenopathy - Respiratory Respiratory exam: Present: CTAB. Absent: accessory muscle use, rales, rhonchi, wheezes - Cardiovascular Cardiovascular exam: Present: RRR, +S1, +S2. Absent: diastolic murmur, gallop, rubs, systolic murmur Internal Medicine: Result - Labs CBC & Chem 7: 08/01/16 05:25 07/30/16 04:40 Labs: Labs okay - ABG Interpretation ABG results: PT/INR, D-dimer PT 11.3 Seconds (9.4-12.1) 07/20/16 05:20 - VTE Documentation of Mechanical Device: Graduated compression elastic hosiery Consult Discharge Plan - Plan Referrals: [place] [Other] - 10/09/16 1:30 pm NO,PCP [Primary Care Provider] -
[2016-08-03] MEDS: Ciprofloxacin/Dex *EAR* Susp 7.5 ML BOTTLE RIGHT EAR SCH ×4 (09:13→19:55)
[2016-08-03] MEDS: Aspirin 81 MG TAB.CHEW PO SCH (09:16)
--- NOTE | 2016-08-03 14:06 | Internal Med Progress Note ---
Date of Encounter: 08/03/16 Time of Encounter: 14:04 - Assessment and plan (1) Facial bones, closed fracture Current Visit: No Status: Acute Assessment and plan: Not clinically a problem Qualifiers: Encounter type: subsequent encounter Mandible location: other site Fracture healing: with routine healing Qualified Code(s): S02.69XD - Fracture of mandible of other specified site, subsequent encounter for fracture with routine healing (2) Near syncope Current Visit: No Status: Acute Assessment and plan: No evidence of problems with near-syncope year (3) TIA (transient ischemic attack) Current Visit: No Status: Acute Assessment and plan: CVA not TIA Qualifiers: Transient cerebral ischemia type: unspecified Qualified Code(s): G45.9 - Transient cerebral ischemic attack, unspecified - Time Spent With Patient less than 15 minutes - Subjective Interval history: Patient still needs standby and ambulating. Speech is still slurred. When he continues to improve his attitude is good - Constitutional Vitals: Temp Pulse Resp BP Pulse Ox 98.3 F 84 16 116/67 98 08/03/16 07:00 08/03/16 07:00 08/03/16 07:00 08/03/16 07:00 08/03/16 07:00 General appearance: Present: A&O X 3, pleasant, no acute distress - Head Head exam: Present: atraumatic, normal inspection, normocephalic - Neck Neck exam general surgery: Present: supple, trachea midline. Absent: lymphadenopathy - Respiratory Respiratory exam: Present: CTAB. Absent: accessory muscle use, rales, rhonchi, wheezes - Cardiovascular Cardiovascular exam: Present: RRR, +S1, +S2. Absent: diastolic murmur, gallop, rubs, systolic murmur Internal Medicine: Result - Labs CBC & Chem 7: 08/01/16 05:25 07/30/16 04:40 Labs: Labs okay - ABG Interpretation ABG results: PT/INR, D-dimer PT 11.3 Seconds (9.4-12.1) 07/20/16 05:20 - VTE Documentation of Mechanical Device: Graduated compression elastic hosiery Consult Discharge Plan - Plan Referrals: [place] [Other] - 10/09/16 1:30 pm NO,PCP [Primary Care Provider] -
[2016-08-04] MEDS: Acetaminophen 325 MG TABLET PO PRN (06:37)
[2016-08-04] MEDS: Aspirin 81 MG TAB.CHEW PO SCH (08:13)
[2016-08-04] MEDS: Ciprofloxacin/Dex *EAR* Susp 7.5 ML BOTTLE RIGHT EAR SCH ×4 (08:17→22:14)
--- NOTE | 2016-08-04 12:46 | Internal Med Progress Note ---
Date of Encounter: 08/04/16 Time of Encounter: 12:45 - Assessment and plan (1) Cerebrovascular accident Current Visit: Yes Status: Inactive Assessment and plan: Diet advanced today. Dysarthria improving. Left-sided weakness still noted. Still has some balance uncoordination Patient is working with therapist including speech and we will follow his progress and reevaluate tomorrow Qualifiers: CVA mechanism: embolism Precerebral and cerebral artery: unspecified cerebral artery Qualified Code(s): I63.40 - Cerebral infarction due to embolism of unspecified cerebral artery - Time Spent With Patient less than 15 minutes - Subjective Interval history: Showed slightly when swallowing milk too fast.. No new complaint today. No shortness of breath. No chest pain. No abdominal pain. Patient reports that he is feeling stronger. He still admits to having some balance issues. - Constitutional Vitals: Temp Pulse Resp BP Pulse Ox 97.9 F 69 19 106/62 94 L 08/04/16 07:07 08/04/16 07:07 08/04/16 07:07 08/04/16 07:07 08/04/16 07:07 General appearance: Present: A&O X 3, pleasant, no acute distress - Respiratory Respiratory exam: Present: CTAB. Absent: accessory muscle use, rales, rhonchi, wheezes - Cardiovascular Cardiovascular exam: Present: RRR, +S1, +S2. Absent: diastolic murmur, gallop, rubs, systolic murmur - GI/Abdominal GI/Abdominal exam: Present: normal bowel sounds, soft, no peritoneal signs. Absent: distended, tenderness - Extremities Exam Extremities exam: Present: warm, radial pulses palpable and symetrical. Absent : calf tenderness, cyanotic, pedal edema - Neurological Exam Neurological exam: Present: speech deficit Internal Medicine: Result - Labs CBC & Chem 7: 08/01/16 05:25 07/30/16 04:40 - ABG Interpretation ABG results: PT/INR, D-dimer PT 11.3 Seconds (9.4-12.1) 07/20/16 05:20 - VTE Documentation of Mechanical Device: Graduated compression elastic hosiery Consult Discharge Plan - Plan Referrals: [facility] [Other] - 10/09/16 1:30 pm NO,PCP [Primary Care Provider] -
[2016-08-05] MEDS: Aspirin 81 MG TAB.CHEW PO SCH (08:25)
[2016-08-05] MEDS: Ciprofloxacin/Dex *EAR* Susp 7.5 ML BOTTLE RIGHT EAR SCH ×4 (08:30→20:42)
--- NOTE | 2016-08-05 13:46 | Internal Med Progress Note ---
Date of Encounter: 08/05/16 Time of Encounter: 13:44 - Assessment and plan (1) Facial bones, closed fracture Current Visit: No Status: Acute Assessment and plan: Not a clinical problem Qualifiers: Encounter type: subsequent encounter Mandible location: other site Fracture healing: with routine healing Qualified Code(s): S02.69XD - Fracture of mandible of other specified site, subsequent encounter for fracture with routine healing (2) Near syncope Current Visit: No Status: Acute Assessment and plan: No episodes of syncope or near syncope (3) TIA (transient ischemic attack) Current Visit: No Status: Acute Assessment and plan: CVA not a TIA Qualifiers: Transient cerebral ischemia type: unspecified Qualified Code(s): G45.9 - Transient cerebral ischemic attack, unspecified - Time Spent With Patient less than 15 minutes - Subjective Interval history: Patient still needs standby and ambulating. Speech is still slurred. When he continues to improve his attitude is good - Constitutional Vitals: Temp Pulse Resp BP Pulse Ox 98.3 F 72 20 101/61 96 08/05/16 07:00 08/05/16 07:00 08/05/16 07:00 08/05/16 07:00 08/05/16 07:00 General appearance: Present: A&O X 3, pleasant, no acute distress - Head Head exam: Present: atraumatic, normal inspection, normocephalic - Neck Neck exam general surgery: Present: supple, trachea midline. Absent: lymphadenopathy - Respiratory Respiratory exam: Present: CTAB. Absent: accessory muscle use, rales, rhonchi, wheezes - Cardiovascular Cardiovascular exam: Present: RRR, +S1, +S2. Absent: diastolic murmur, gallop, rubs, systolic murmur Internal Medicine: Result - Labs CBC & Chem 7: 08/01/16 05:25 07/30/16 04:40 Labs: Lab is okay - ABG Interpretation ABG results: PT/INR, D-dimer PT 11.3 Seconds (9.4-12.1) 07/20/16 05:20 - VTE Documentation of Mechanical Device: Graduated compression elastic hosiery Consult Discharge Plan - Plan Referrals: [place], [facility] [Other] - 10/09/16 1:30 pm NO,PCP [Primary Care Provider] -
[2016-08-06 05:23] LABS: Basophils % 0.6 %; Eosinophils # 0.3 K/mcL (0.0-0.6); Eosinophils % 4.8 %; Hematocrit 36.4 % (37.5-50.1); Hemoglobin 12.4 g/dL (12.9-16.9); Immature Granulocytes % 0.2 % (0-4); Lymphocytes # 1.7 K/mcL (0.6-4.6); Lymphocytes % 26.5 %; Mean Corpuscular HGB Conc 34.1 g/dL (31.6-35.5); Mean Corpuscular Hemoglobin 32.5 pg (28.0-33.3); Mean Corpuscular Volume 95.5 fL (83.0-100.0); Mean Platelet Volume 10.3 fL (9.4-12.4); Monocytes # 0.5 K/mcL (0.0-1.3); Monocytes % 8.2 %; Neutrophils # 3.8 K/mcL (1.6-8.9); Platelet Count 147 K/mcL (140-400); Red Blood Count 3.81 M/mcL (4.19-5.50); Red Cell Distribution Width 12.2 % (11.5-14.5); Segmented Neutrophils % 59.7 %
[2016-08-06 05:37] LABS: BUN/Creatinine Ratio 16 (6-26); Blood Urea Nitrogen 19 mg/dL (8-26); Calcium 9.1 mg/dL (8.6-10.8); Carbon Dioxide 24 mEq/L (19-29); Chloride 104 mEq/L (98-109); Glucose 97 mg/dL (70-99); Osmolality,Calculated 284 (280-300); Potassium 5.1 mEq/L (3.5-4.5); Sodium 136 mEq/L (136-145); eGFR For African Americans > 60 (> 60); eGFR For Non-African Americans 59 (> 60)
[2016-08-06] MEDS: Aspirin 81 MG TAB.CHEW PO SCH (08:04)
[2016-08-06] MEDS: Ciprofloxacin/Dex *EAR* Susp 7.5 ML BOTTLE RIGHT EAR SCH ×4 (08:05→20:13)
--- NOTE | 2016-08-06 13:32 | Internal Med Progress Note ---
Date of Encounter: 08/06/16 Time of Encounter: 13:29 - Assessment and plan (1) Facial bones, closed fracture Current Visit: No Status: Acute Assessment and plan: Previous admission when he was noted to have facial fractures from fall Qualifiers: Encounter type: subsequent encounter Mandible location: other site Fracture healing: with routine healing Qualified Code(s): S02.69XD - Fracture of mandible of other specified site, subsequent encounter for fracture with routine healing (2) Near syncope Current Visit: No Status: Acute Assessment and plan: Not aware of any near syncopal episodes he does lose balance (3) TIA (transient ischemic attack) Current Visit: No Status: Acute Assessment and plan: Is here for CVA not a TIA Qualifiers: Transient cerebral ischemia type: unspecified Qualified Code(s): G45.9 - Transient cerebral ischemic attack, unspecified - Time Spent With Patient less than 15 minutes - Subjective Interval history: Patient still needs standby and ambulating. Speech is still slurred. When he continues to improve his attitude is good. Patient's speech might be a little bit improved. He still needs constant reminders and still contributing his ability to work with PT OT [facility] - Constitutional Vitals: Temp Pulse Resp BP Pulse Ox 98.1 F 64 17 102/62 98 08/06/16 07:00 08/06/16 07:00 08/06/16 07:00 08/06/16 07:00 08/06/16 07:00 General appearance: Present: A&O X 3, pleasant, no acute distress - Head Head exam: Present: atraumatic, normal inspection, normocephalic - Neck Neck exam general surgery: Present: supple, trachea midline. Absent: lymphadenopathy - Respiratory Respiratory exam: Present: CTAB. Absent: accessory muscle use, rales, rhonchi, wheezes - Cardiovascular Cardiovascular exam: Present: RRR, +S1, +S2. Absent: diastolic murmur, gallop, rubs, systolic murmur - GI/Abdominal GI/Abdominal exam: Present: normal bowel sounds, soft, no peritoneal signs. Absent: distended, tenderness Internal Medicine: Result - Labs CBC & Chem 7: 08/06/16 05:05 08/06/16 05:05 Labs: Short CBC 08/06/16 Range/Units 05:05 WBC 6.3 (4.3-11.1) K/mcL Hgb 12.4 L (12.9-16.9) g/dL Hct 36.4 L (37.5-50.1) % Plt Count 147 (140-400) K/mcL Neutrophils # 3.8 (1.6-8.9) K/mcL BMP 08/06/16 05:05 Sodium 136 Potassium 5.1 H Chloride 104 Carbon Dioxide 24 BUN 19 Creatinine 1.21 Glucose 97 Calcium 9.1 Lab looks good patient not receiving any potassium but his K is a little elevated so will follow - ABG Interpretation ABG results: PT/INR, D-dimer PT 11.3 Seconds (9.4-12.1) 07/20/16 05:20 - VTE Documentation of Mechanical Device: Graduated compression elastic hosiery Consult Discharge Plan - Plan Referrals: [place] [facility] [Other] - 10/09/16 1:30 pm NO,PCP [Primary Care Provider] -
[2016-08-07] MEDS: Aspirin 81 MG TAB.CHEW PO SCH (08:08)
[2016-08-07] MEDS: Ciprofloxacin/Dex *EAR* Susp 7.5 ML BOTTLE RIGHT EAR SCH ×4 (08:09→19:58)
[2016-08-07] MEDS: Acetaminophen 325 MG TABLET PO PRN (10:08)
--- NOTE | 2016-08-07 13:23 | Internal Med Progress Note ---
Date of Encounter: 08/07/16 Time of Encounter: 13:21 - Assessment and plan (1) TIA (transient ischemic attack) Current Visit: No Status: Acute Assessment and plan: CVA patient had CVA not TIA Qualifiers: Transient cerebral ischemia type: unspecified Qualified Code(s): G45.9 - Transient cerebral ischemic attack, unspecified - Time Spent With Patient less than 15 minutes - Subjective Interval history: Patient still needs standby and ambulating. Speech is still slurred. When he continues to improve his attitude is good. Patient's speech might be a little bit improved. He still needs constant reminders and still contributing his ability to work with PT OT Doris [facility] - Constitutional Vitals: Temp Pulse Resp BP Pulse Ox 98.4 F 87 18 100/67 96 08/07/16 07:00 08/07/16 07:00 08/07/16 07:00 08/07/16 07:00 08/07/16 07:00 General appearance: Present: A&O X 3, pleasant, no acute distress - Head Head exam: Present: atraumatic, normal inspection, normocephalic - Respiratory Respiratory exam: Present: CTAB. Absent: accessory muscle use, rales, rhonchi, wheezes - Cardiovascular Cardiovascular exam: Present: RRR, +S1, +S2. Absent: diastolic murmur, gallop, rubs, systolic murmur - GI/Abdominal GI/Abdominal exam: Present: normal bowel sounds, soft, no peritoneal signs. Absent: distended, tenderness Internal Medicine: Result - Labs CBC & Chem 7: 08/06/16 05:05 08/06/16 05:05 Labs: Watch potassium and otherwise labs - ABG Interpretation ABG results: PT/INR, D-dimer PT 11.3 Seconds (9.4-12.1) 07/20/16 05:20 - VTE Documentation of Mechanical Device: Graduated compression elastic hosiery Consult Discharge Plan - Plan Referrals: [place] [Other] - 10/09/16 1:30 pm NO,PCP [Primary Care Provider] -
[2016-08-08] MEDS: Aspirin 81 MG TAB.CHEW PO SCH (08:02)
[2016-08-08] MEDS: Acetaminophen 325 MG TABLET PO PRN (08:02)
[2016-08-08] MEDS: Ciprofloxacin/Dex *EAR* Susp 7.5 ML BOTTLE RIGHT EAR SCH ×4 (08:04→20:23)
--- NOTE | 2016-08-08 15:01 | Internal Med Progress Note ---
Date of Encounter: 08/08/16 Time of Encounter: 14:59 - Assessment and plan (1) TIA (transient ischemic attack) Current Visit: No Status: Acute Assessment and plan: Patient had a CVA not a TIA is working with PT OT and TR. Qualifiers: Transient cerebral ischemia type: unspecified Qualified Code(s): G45.9 - Transient cerebral ischemic attack, unspecified - Time Spent With Patient less than 15 minutes - Subjective Interval history: Patient is lost a few pounds. He is seen by dietetics. He has lots S [place] likes that better the regular food. We did encourage him to eat his regular B - Constitutional Vitals: Temp Pulse Resp BP Pulse Ox 99.0 F 78 18 109/62 95 08/08/16 07:19 08/08/16 07:19 08/08/16 07:19 08/08/16 07:19 08/08/16 07:19 General appearance: Present: A&O X 3, pleasant, no acute distress - Head Head exam: Present: atraumatic, normal inspection, normocephalic - Neck Neck exam general surgery: Present: supple, trachea midline. Absent: lymphadenopathy - Respiratory Respiratory exam: Present: CTAB. Absent: accessory muscle use, rales, rhonchi, wheezes - Cardiovascular Cardiovascular exam: Present: RRR, +S1, +S2. Absent: diastolic murmur, gallop, rubs, systolic murmur Internal Medicine: Result - Labs CBC & Chem 7: 08/06/16 05:05 08/06/16 05:05 Labs: Lab looks good - ABG Interpretation ABG results: PT/INR, D-dimer PT 11.3 Seconds (9.4-12.1) 07/20/16 05:20 - VTE Documentation of Mechanical Device: Graduated compression elastic hosiery Consult Discharge Plan - Plan Referrals: [place] [Other] - 10/09/16 1:30 pm NO,PCP [Primary Care Provider] -
[2016-08-09 05:40] LABS: BUN/Creatinine Ratio 21 (6-26); Blood Urea Nitrogen 21 mg/dL (8-26); Calcium 9.2 mg/dL (8.6-10.8); Carbon Dioxide 23 mEq/L (19-29); Chloride 105 mEq/L (98-109); Glucose 95 mg/dL (70-99); Osmolality,Calculated 285 (280-300); Potassium 4.3 mEq/L (3.5-4.5); Sodium 136 mEq/L (136-145); eGFR For African Americans > 60 (> 60); eGFR For Non-African Americans > 60 (> 60)
[2016-08-09] MEDS: Aspirin 81 MG TAB.CHEW PO SCH (08:15)
[2016-08-09] MEDS: Ciprofloxacin/Dex *EAR* Susp 7.5 ML BOTTLE RIGHT EAR SCH (08:16)
--- NOTE | 2016-08-09 13:09 | Internal Med Progress Note ---
Date of Encounter: 08/09/16 Time of Encounter: 13:07 - Assessment and plan (1) TIA (transient ischemic attack) Current Visit: No Status: Acute Assessment and plan: Patient had a stroke TIA Qualifiers: Transient cerebral ischemia type: unspecified Qualified Code(s): G45.9 - Transient cerebral ischemic attack, unspecified - Time Spent With Patient less than 15 minutes - Subjective Interval history: Patient is lost a few pounds. He is seen by dietetics. He has lots Snakes, likes that better the regular food. We did encourage him to eat his regular B - Constitutional Vitals: Temp Pulse Resp BP Pulse Ox 97.6 F 68 17 127/67 94 L 08/09/16 07:00 08/09/16 07:00 08/09/16 07:00 08/09/16 07:00 08/09/16 07:00 General appearance: Present: A&O X 3, pleasant, no acute distress - Head Head exam: Present: atraumatic, normal inspection, normocephalic - Neck Neck exam general surgery: Present: supple, trachea midline. Absent: lymphadenopathy - Respiratory Respiratory exam: Present: CTAB. Absent: accessory muscle use, rales, rhonchi, wheezes - Cardiovascular Cardiovascular exam: Present: RRR, +S1, +S2. Absent: diastolic murmur, gallop, rubs, systolic murmur - GI/Abdominal GI/Abdominal exam: Present: normal bowel sounds, soft, no peritoneal signs. Absent: distended, tenderness Internal Medicine: Result - Labs CBC & Chem 7: 08/06/16 05:05 08/09/16 05:20 Labs: BMP 08/09/16 05:20 Sodium 136 Potassium 4.3 Chloride 105 Carbon Dioxide 23 BUN 21 Creatinine 1.02 Glucose 95 Calcium 9.2 - ABG Interpretation ABG results: PT/INR, D-dimer PT 11.3 Seconds (9.4-12.1) 07/20/16 05:20 - VTE Documentation of Mechanical Device: Graduated compression elastic hosiery Consult Discharge Plan - Plan Referrals: [facility] [Other] - 10/09/16 1:30 pm NO,PCP [Primary Care Provider] -
[2016-08-09] MEDS: Sennosides/Docusate Sodium TABLET PO PRN (21:52)
[2016-08-09] MEDS: Acetaminophen 325 MG TABLET PO PRN (21:53)
--- NOTE | 2016-08-09 22:37 | Internal Med Progress Note ---
Date of Encounter: 08/11/16 Time of Encounter: 11:49 - Assessment and plan (1) Cerebrovascular accident Current Visit: Yes Status: Inactive Assessment and plan: . Dysarthria improving. Left-sided weakness still noted. Still has some balance uncoordination Patient is working with therapist including speech and we will follow his progress and reevaluate tomorrow Qualifiers: CVA mechanism: embolism Precerebral and cerebral artery: unspecified cerebral artery Qualified Code(s): I63.40 - Cerebral infarction due to embolism of unspecified cerebral artery - Time Spent With Patient less than 15 minutes - Subjective Interval history: . No new complaint today. No shortness of breath. No chest pain. No abdominal pain. Patient reports that he is feeling stronger. He still admits to having some balance issues. - Constitutional Vitals: Temp Pulse Resp BP Pulse Ox 98.4 F 80 14 119/63 94 L 08/09/16 18:57 08/09/16 18:57 08/09/16 18:57 08/09/16 18:57 08/09/16 18:57 General appearance: Present: A&O X 3, pleasant, no acute distress - Respiratory Respiratory exam: Present: CTAB. Absent: accessory muscle use, rales, rhonchi, wheezes - Cardiovascular Cardiovascular exam: Present: RRR, +S1, +S2. Absent: diastolic murmur, gallop, rubs, systolic murmur - GI/Abdominal GI/Abdominal exam: Present: normal bowel sounds, soft, no peritoneal signs. Absent: distended, tenderness - Extremities Exam Extremities exam: Present: warm, radial pulses palpable and symetrical. Absent : calf tenderness, cyanotic, pedal edema Internal Medicine: Result - Labs CBC & Chem 7: 08/06/16 05:05 08/09/16 05:20 Labs: BMP 08/09/16 05:20 Sodium 136 Potassium 4.3 Chloride 105 Carbon Dioxide 23 BUN 21 Creatinine 1.02 Glucose 95 Calcium 9.2 - ABG Interpretation ABG results: PT/INR, D-dimer PT 11.3 Seconds (9.4-12.1) 07/20/16 05:20 - VTE Documentation of Mechanical Device: Graduated compression elastic hosiery Consult [facility]charge Plan - [facility] - 10/09/16 1:30 pm NO,PCP [Primary Care Provider] -
[2016-08-10] MEDS: Aspirin 81 MG TAB.CHEW PO SCH (07:51)
[2016-08-10] MEDS: Acetaminophen 325 MG TABLET PO PRN ×2 (07:52→20:25)
[2016-08-11] MEDS: Aspirin 81 MG TAB.CHEW PO SCH (08:13)
[2016-08-12] MEDS: Aspirin 81 MG TAB.CHEW PO SCH (10:22)
--- NOTE | 2016-08-12 12:13 | Internal Med Progress Note ---
Date of Encounter: 08/12/16 Time of Encounter: 12:12 - Assessment and plan (1) TIA (transient ischemic attack) Current Visit: No Status: Acute Qualifiers: Transient cerebral ischemia type: unspecified Qualified Code(s): G45.9 - Transient cerebral ischemic attack, unspecified - Subjective Interval history: Patient is doing well no complaints eating large - Constitutional Vitals: Temp Pulse Resp BP Pulse Ox 98.3 F 61 18 110/70 94 L 08/12/16 06:00 08/12/16 06:00 08/12/16 06:00 08/12/16 06:00 08/12/16 06:00 General appearance: Present: A&O X 3, pleasant, no acute distress - Head Head exam: Present: atraumatic, normal inspection, normocephalic - Neck Neck exam general surgery: Present: supple, trachea midline. Absent: lymphadenopathy - Respiratory Respiratory exam: Present: CTAB. Absent: accessory muscle use, rales, rhonchi, wheezes - Cardiovascular Cardiovascular exam: Present: RRR, +S1, +S2. Absent: diastolic murmur, gallop, rubs, systolic murmur - GI/Abdominal GI/Abdominal exam: Present: normal bowel sounds, soft, no peritoneal signs. Absent: distended, tenderness Internal Medicine: Result - Labs CBC & Chem 7: 08/06/16 05:05 08/09/16 05:20 - ABG Interpretation ABG results: PT/INR, D-dimer PT 11.3 Seconds (9.4-12.1) 07/20/16 05:20 - VTE Documentation of Mechanical Device: Graduated compression elastic hosiery Consult Discharge Plan - Plan Referrals: [facility] [Other] - 10/09/16 1:30 pm NO,PCP [Primary Care Provider] -
[2016-08-12] MEDS: Acetaminophen 325 MG TABLET PO PRN (13:21)
[2016-08-13 06:11] LABS: Basophils % 0.5 %; Eosinophils # 0.3 K/mcL (0.0-0.6); Eosinophils % 5.4 %; Hematocrit 35.7 % (37.5-50.1); Hemoglobin 12.1 g/dL (12.9-16.9); Immature Granulocytes % 0.3 % (0-4); Lymphocytes # 1.6 K/mcL (0.6-4.6); Lymphocytes % 25.1 %; Mean Corpuscular HGB Conc 33.9 g/dL (31.6-35.5); Mean Corpuscular Hemoglobin 32.4 pg (28.0-33.3); Mean Corpuscular Volume 95.5 fL (83.0-100.0); Mean Platelet Volume 10.2 fL (9.4-12.4); Monocytes # 0.5 K/mcL (0.0-1.3); Monocytes % 8.1 %; Neutrophils # 3.8 K/mcL (1.6-8.9); Platelet Count 131 K/mcL (140-400); Red Blood Count 3.74 M/mcL (4.19-5.50); Segmented Neutrophils % 60.6 %
[2016-08-13 06:48] LABS: BUN/Creatinine Ratio 16 (6-26); Blood Urea Nitrogen 20 mg/dL (8-26); Calcium 9.4 mg/dL (8.6-10.8); Carbon Dioxide 24 mEq/L (19-29); Chloride 104 mEq/L (98-109); Glucose 90 mg/dL (70-99); Osmolality,Calculated 288 (280-300); Potassium 4.8 mEq/L (3.5-4.5); Sodium 138 mEq/L (136-145); eGFR For African Americans > 60 (> 60); eGFR For Non-African Americans 56 (> 60)
[2016-08-13] MEDS: Acetaminophen 325 MG TABLET PO PRN ×2 (08:39→20:45)
[2016-08-13] MEDS: Aspirin 81 MG TAB.CHEW PO SCH (08:39)
--- NOTE | 2016-08-13 11:45 | Internal Med Progress Note ---
Date of Encounter: 08/13/16 Time of Encounter: 11:44 - Assessment and plan (1) TIA (transient ischemic attack) Current Visit: No Status: Acute Assessment and plan: Patient had a CVA not a TIA Qualifiers: Transient cerebral ischemia type: unspecified Qualified Code(s): G45.9 - Transient cerebral ischemic attack, unspecified - Time Spent With Patient less than 15 minutes - Subjective Interval history: Patient is doing well no complaints eating well. - Constitutional Vitals: Temp Pulse Resp BP Pulse Ox 97.6 F 80 17 108/64 97 08/13/16 07:00 08/13/16 07:00 08/13/16 07:00 08/13/16 07:00 08/13/16 07:00 General appearance: Present: A&O X 3, pleasant, no acute distress - Head Head exam: Present: atraumatic, normal inspection, normocephalic - Neck Neck exam general surgery: Present: supple, trachea midline. Absent: lymphadenopathy - Respiratory Respiratory exam: Present: CTAB. Absent: accessory muscle use, rales, rhonchi, wheezes - Cardiovascular Cardiovascular exam: Present: RRR, +S1, +S2. Absent: diastolic murmur, gallop, rubs, systolic murmur - GI/Abdominal GI/Abdominal exam: Present: normal bowel sounds, soft, no peritoneal signs. Absent: distended, tenderness Internal Medicine: Result - Labs CBC & Chem 7: 08/13/16 06:00 08/13/16 06:00 Labs: Short CBC 08/13/16 Range/Units 06:00 WBC 6.3 (4.3-11.1) K/mcL Hgb 12.1 L (12.9-16.9) g/dL Hct 35.7 L (37.5-50.1) % Plt Count 131 L (140-400) K/mcL Neutrophils # 3.8 (1.6-8.9) K/mcL BMP 08/13/16 06:00 Sodium 138 Potassium 4.8 H Chloride 104 Carbon Dioxide 24 BUN 20 Creatinine 1.27 H Glucose 90 Calcium 9.4 Lab looks good - ABG Interpretation ABG results: PT/INR, D-dimer PT 11.3 Seconds (9.4-12.1) 07/20/16 05:20 - VTE Documentation of Mechanical Device: Graduated compression elastic hosiery Consult Discharge Plan - Plan Referrals: [facility] [Other] - 10/09/16 1:30 pm NO,PCP [Primary Care Provider] -
[2016-08-14] MEDS: Aspirin 81 MG TAB.CHEW PO SCH (08:33)
--- NOTE | 2016-08-14 13:45 | Internal Med Progress Note ---
Date of Encounter: 08/14/16 Time of Encounter: 13:43 - Assessment and plan (1) TIA (transient ischemic attack) Current Visit: No Status: Acute Assessment and plan: Patient has CVA TIA Qualifiers: Transient cerebral ischemia type: unspecified Qualified Code(s): G45.9 - Transient cerebral ischemic attack, unspecified - Time Spent With Patient less than 15 minutes - Subjective Interval history: Patient is doing well no complaints eating well. Cooperating with the therapist .very pleasant. - Constitutional Vitals: Temp Pulse Resp BP Pulse Ox 98.1 F 60 16 148/77 98 08/14/16 07:00 08/14/16 07:00 08/14/16 07:00 08/14/16 07:00 08/14/16 07:00 General appearance: Present: A&O X 3, pleasant, no acute distress - Head Head exam: Present: atraumatic, normocephalic - Neck Neck exam general surgery: Present: supple, trachea midline. Absent: lymphadenopathy - Respiratory Respiratory exam: Present: CTAB. Absent: accessory muscle use, rales, rhonchi, wheezes - Cardiovascular Cardiovascular exam: Present: RRR, +S1, +S2. Absent: diastolic murmur, gallop, rubs, systolic murmur Internal Medicine: Result - Labs CBC & Chem 7: 08/13/16 06:00 08/13/16 06:00 Labs: Lab is stable - ABG Interpretation ABG results: PT/INR, D-dimer PT 11.3 Seconds (9.4-12.1) 07/20/16 05:20 - VTE Documentation of Mechanical Device: Graduated compression elastic hosiery Consult Discharge Plan - Plan [facility] [Other] - 10/09/16 1:30 pm NO,PCP [Primary Care Provider] -
[2016-08-15] MEDS: Aspirin 81 MG TAB.CHEW PO SCH (08:30)
[2016-08-15] MEDS: Acetaminophen 325 MG TABLET PO PRN (08:31)
--- NOTE | 2016-08-15 12:33 | Physical Med Progress Note ---
Date of Encounter: 08/15/16 Time of Encounter: 12:27 Physical Medicine-PN: Subj Interval history: PMR PCC Note Mr. Camargo will require 24 hour supervision at time of discharge. Patient is SBA/CGA for gait. Patient is unsteady, wide base of support with ambulation. Patient is not safe for independent ambulation. He is a fall risk. Recommend patient is a wheelchair level at home for safety. Patient requires safety cues for ambulation with a walker. Plan for discharge on 08/17/16. Recommend continued PT/OT after discharge. - Constitutional Vitals: Vital Signs Temp Pulse Resp BP Pulse Ox 08/15/16 10:25 98.2 F 78 18 117/65 96 08/14/16 19:00 98.4 F 77 18 102/52 95 Intake and Output 08/14/16 08/15/16 08/15/16 23:59 07:59 15:59 Intake Total 120 / 120 480 / 480 Output Total 325 / 325 Balance 120 / 120 -325 / -325 480 / 480 Intake: Oral 120 / 120 480 / 480 Output: Urine 325 / 325 Other: Meal Dinner Breakfast Percent of Meal Consumed 90% 100% # Voids 1 Physical Medicine-PN: Obj Data - Labs CBC & Chem 7: 08/13/16 06:00 08/13/16 06:00 - ABG Interpretation ABG results: PT/INR, D-dimer PT 11.3 Seconds (9.4-12.1) 07/20/16 05:20 - VTE Documentation of Mechanical Device: Graduated compression elastic hosiery Consult Discharge Plan - Plan Referrals: [facility] [Other] - 10/09/16 1:30 pm NO,PCP [Primary Care Provider] -
--- NOTE | 2016-08-15 13:13 | Internal Med Progress Note ---
Date of Encounter: 08/15/16 Time of Encounter: 13:11 - Assessment and plan (1) TIA (transient ischemic attack) Current Visit: No Status: Acute Qualifiers: Transient cerebral ischemia type: unspecified Qualified Code(s): G45.9 - Transient cerebral ischemic attack, unspecified - Time Spent With Patient less than 15 minutes - Subjective Interval history: Patient is doing well no complaints eating well. Cooperating with the therapist .very pleasant. We discussed the progress. We will still not safe to be alone. And but he has improved and his speech is much clear - Constitutional Vitals: Temp Pulse Resp BP Pulse Ox 98.2 F 78 18 117/65 96 08/15/16 10:25 08/15/16 10:25 08/15/16 10:25 08/15/16 10:25 08/15/16 10:25 General appearance: Present: A&O X 3, pleasant, no acute distress - Head Head exam: Present: atraumatic, normal inspection, normocephalic - Neck Neck exam general surgery: Present: supple, trachea midline. Absent: lymphadenopathy - Respiratory Respiratory exam: Present: CTAB. Absent: accessory muscle use, rales, rhonchi, wheezes - Cardiovascular Cardiovascular exam: Present: RRR, +S1, +S2. Absent: diastolic murmur, gallop, rubs, systolic murmur Internal Medicine: Result - Labs CBC & Chem 7: 08/13/16 06:00 08/13/16 06:00 Labs: Lab looks good - ABG Interpretation ABG results: PT/INR, D-dimer PT 11.3 Seconds (9.4-12.1) 07/20/16 05:20 - VTE Documentation of Mechanical Device: Graduated compression elastic hosiery Consult Discharge Plan - Plan Referrals: [facility] [Other] - 10/09/16 1:30 pm NO,PCP [Primary Care Provider] -
--- NOTE | 2016-08-15 16:20 | Rehab Psychology Progress Note ---
Date of Encounter: 08/15/16 Time of Encounter: 11:30 Subjective - Patient Report Patient Report: Mr. Camargo reported that he is looking forward to going to his brother's house "for a couple of days" and then going to live with his daughter "for a week or two". Objective - Mental Status Mental Status Changes: Mr. Camargo was alert, attentive, friendly and cooperative. Speech was muffled but fluent. He was talkative and noted to display a sense of humor. Mood appeared euthymic. Session focused on his progress in rehabilitation and his perception of what he needs to demonstrate functionally to return to independent community living. He reported that he will need to be able to cook , wash dishes, make his bed and sweep to return to his own home. He minimized any potential problems and reported that his daughter will be able to assist him. Mr. Flores acknowledged that it would be difficult for him to live with his children for any extended period because "don't take orders from my kids". Assessment and Plan - Diagnosis (1) Other specified mental disorders due to known physiological condition (2) CVA (cerebrovascular accident due to intracerebral hemorrhage) Qualifiers: Intracerebral hemorrhage etiology: nontraumatic Cerebral hemorrhage location: unspecified cerebral location Laterality: unspecified laterality Qualified Code(s): I61.9 - Nontraumatic intracerebral hemorrhage, unspecified Procedures - Intervention Interventions: Supportive Counseling - Modality Modality: Psychotherapy 45 minutes - Participants Therapy Participant: Patient - Session Time Session Start Time: 11:30 Session Stop Time: 12:00
[2016-08-16] MEDS: Aspirin 81 MG TAB.CHEW PO SCH (09:24)
--- NOTE | 2016-08-16 11:28 | Internal Med Progress Note ---
Date of Encounter: 08/16/16 Time of Encounter: 11:26 - Assessment and plan (1) TIA (transient ischemic attack) Current Visit: No Status: Acute Assessment and plan: Patient has CVA not a TIA patient should not live alone and we have emphasized to the patient and the family that he needs to stay with his brother B.. Qualifiers: Transient cerebral ischemia type: unspecified Qualified Code(s): G45.9 - Transient cerebral ischemic attack, unspecified - Time Spent With Patient less than 15 minutes - Subjective Interval history: Mr. Camargo all excited about leaving tomorrow. Family is coming in at 10 AM to do education. - Constitutional Vitals: Temp Pulse Resp BP Pulse Ox 97.9 F 72 17 103/64 96 08/16/16 07:00 08/16/16 07:00 08/16/16 07:00 08/16/16 07:00 08/16/16 07:00 General appearance: Present: A&O X 3, pleasant, no acute distress - Head Head exam: Present: atraumatic, normal inspection, normocephalic - Neck Neck exam general surgery: Present: supple, trachea midline. Absent: lymphadenopathy - Respiratory Respiratory exam: Present: CTAB. Absent: accessory muscle use, rales, rhonchi, wheezes - Cardiovascular Cardiovascular exam: Present: RRR, +S1, +S2. Absent: diastolic murmur, gallop, rubs, systolic murmur - GI/Abdominal GI/Abdominal exam: Present: normal bowel sounds, soft, no peritoneal signs. Absent: distended, tenderness Internal Medicine: Result - Labs CBC & Chem 7: 08/13/16 06:00 08/13/16 06:00 Labs: Labs okay - ABG Interpretation ABG results: PT/INR, D-dimer PT 11.3 Seconds (9.4-12.1) 07/20/16 05:20 - VTE Documentation of Mechanical Device: Graduated compression elastic hosiery Consult Discharge Plan - [facility]Other] - 10/09/16 1:30 pm NO,PCP [Primary Care Provider] -
[2016-08-16] MEDS: Acetaminophen 325 MG TABLET PO PRN (21:20)
[2016-08-17 07:19] VITALS: BP 125/63
[2016-08-17] MEDS: Acetaminophen 325 MG TABLET PO PRN (08:20)
[2016-08-17] MEDS: Aspirin 81 MG TAB.CHEW PO SCH (08:20)
--- NOTE | 2016-08-17 11:13 | Discharge Summary ---
Date of Encounter: 08/17/16 Time of Encounter: 11:11 - Discharge Diagnosis (1) TIA (transient ischemic attack) Priority: Primary Status: Acute Comments: Patient had a CVA 19 Qualifiers: Qualified Code(s): G45.9 - Transient cerebral ischemic attack, unspecified - Discharge Medications Home Medications: Acetaminophen [Tylenol] 650 mg PO Q6H PRN 04/20/16 [History] Atorvastatin Calcium [Lipitor] 80 mg PO HS 04/20/16 [History] Citalopram [CeleXA] 20 mg PO DAILY 04/20/16 [History] Lisinopril [Zestril] 10 mg PO DAILY 04/20/16 [History] Sennosides/Docusate Sodium [Senna-Docusate Sodium Tablet] 1 tab PO BID PRN 04/20 [History] Aspirin 81 mg PO DAILY 07/19/16 [History] Allergies/Adverse Reactions: Allergies No Known Allergies Allergy (Verified 04/09/16 23:54) Date of admission: 07/19/16 18:19 Primary care physician: PCP NO Consults: 07/19/16 20:00 Consult to Occupational Therapy [CONS] Routine Comment: Evaluate, develop and implement POC Consult to Physical Therapy [CONS] Routine Comment: Evaluate, develop and implement POC Consult to Recreational Therapy [CONS] Routine Comment: Evaluate, develop and implement POC Consult to Patient Account Representative [CONS] Routine Reason for SW Consult: dc planing Consult to Speech Therapy [CONS] Routine Comment: Evaluate, develop and implement POC Reason for Consult: speech impairment Call Completed: Yes 07/24/16 12:00 Consult to Psychology [CONS] Routine Consulting Provider: Stephanie Culp Reason for Consult: cva, rehab Call Completed: No Discharging clinician: Sulaiman Peña Anticipated date of discharge: 08/17/16 - Patient Status Disposition: Home, Self-Care Condition: Good Functional capacity at discharge: uses cane/walker Overall status at discharge: patient is progressing back to baseline - Discharge Instructions Follow Up With: [facility] [Other] - 10/09/16 1:30 pm NO,PCP [Primary Care Provider] - Chase Vargas MD [Non-Partnered Physician] - 08/24/16 1:45 pm - Diet and Activity Activity: ambulate only with your walker Interval History: Arrived with thickened speech and unsteady gait etc. Secondary to a CVA. Hospital course: Mr. Camargo is a 71 year old male Patient speech is improved he is very easy to understand now . he has walked and worked with our therapist. It is been explained to the patient and family though he should not be left alone. He still has high risk for falling - Time Spent with Patient Total time spent providing and/or coordinating discharge services: Less than 30 minutes - Constitutional Vitals: Temp Pulse Resp BP Pulse Ox 97.0 F L 69 18 125/63 96 08/17/16 07:18 08/17/16 07:18 08/17/16 07:18 08/17/16 07:18 08/17/16 07:18 General appearance: Present: A&O X 3, pleasant, no acute distress - Head Head exam: Present: atraumatic, normal inspection, normocephalic - Neck Neck exam general surgery: Present: supple, trachea midline. Absent: lymphadenopathy - Respiratory Respiratory exam: Present: CTAB. Absent: accessory muscle use, rales, rhonchi, wheezes - Cardiovascular Cardiovascular exam: Present: RRR, +S1, +S2. Absent: diastolic murmur, gallop, rubs, systolic murmur - VTE Documentation of Mechanical Device: Graduated compression elastic hosiery
== END 2016-08-17 12:05 | disposition home or self-care (01) | DRG 57 ==
LOC: INPGRE 18:19
PROVIDERS: ADMIT Internal Medicine; ATTEND Internal Medicine